=== PATIENT | female | born 1955 | race Caucasian/White ===

== ENCOUNTER 2024-04-04 08:30 | Outpatient (CLI) | payer OTHER, SELFPAY ==
--- NOTE | ~2024-04-04 | NM_ITS ---
EXAMINATION: NM parathyroid w imaging DATE: 04/04/2024 13:01 INDICATION: Hypercalcemia. Assess for parathyroid adenoma TECHNIQUE: 20 mCi Tc99m Cardiolite was administered by intravenous route. Anterior images of the neck were obtained at 10 minutes and 2 hours. COMPARISON: None. FINDINGS/IMPRESSION: There is no focus of persistent activity in the area of the thyroid or mediastinum to suggest parathy roid adenoma. Reviewed, dictated and finalized at location A.
== END 2024-04-04 08:31 | disposition home or self-care (01) ==
PROVIDERS: PCP Family Medicine; Visit Provider Internal Medicine Endocrinology, Diabetes & Metabolism
DX: E21.3 Hyperparathyroidism, unspecified (principal); R82.994 Hypercalciuria
CPT/HCPCS: 78070; A9500